=== PATIENT | male | born 1960 | race Caucasian/White ===

== ENCOUNTER 2021-09-05 12:26 | Outpatient (CLI) | payer BC ==
[~2021-09-05 12:26] MED LIST: Magnevist 469MG/ML 20 ML VIAL ONE
== END 2021-09-05 12:27 | disposition home or self-care (01) ==
LOC: CSHMRI 12:26
PROVIDERS: ATTEND Urology
DX: C61 Malignant neoplasm of prostate (principal)
CPT/HCPCS: 72197; 82565